=== PATIENT | male | born 1965 | race Caucasian/White ===

== ENCOUNTER 2020-06-06 17:28 | Emergency (ER) | payer BC ==
--- NOTE | 2020-06-06 19:07 | EDM.PDOC ---
ED HPI GENERAL MEDICAL PROBLEM - General Chief Complaint: General Stated Complaint: FISH HOOK Time Seen by Provider: 06/06/20 18:30 Source of Information: Reports: Patient History Limitations: Reports: No Limitations - History of Present Illness INITIAL COMMENTS - FREE TEXT/NARRATIVE: pt presents to the ER with a treble hook and lure in the crease of his nail of index finger right hand. pt states tetanus is up to date about 2016. bleeding controlled. Past Medical History - Past Health History Medical/Surgical History: Denies Medical/Surgical History Social & Family History - Family History Family Medical History: Noncontributory ED ROS GENERAL - Review of Systems Review Of Systems: Comprehensive ROS is negative, except as noted in HPI. ED EXAM, GENERAL - Physical Exam Exam: See Below Exam Limited By: No Limitations General Appearance: Alert, WD/WN, Anxious Respiratory/Chest: No Respiratory Distress, Normal Breath Sounds Cardiovascular: Normal Peripheral Pulses, Regular Rate, Rhythm Extremities: Other (barbed treble hook in crease of fingernail of ring finger right hand.) Neurological: Alert, Oriented, CN II-XII Intact, Normal Cognition, No Motor/Se nsory Deficits Psychiatric: Anxious ED GENERAL MEDICAL PROCEDURES - Additional/Other Procedure(s) Other (Free Text) Procedure(s): fishhook removal pt provided verbal consent for fishook removal from ring finger of right hand site was cleansed with alcohol swab and 2 ml of 1% lido with epi was injected into area surrounding barbed hook. remaining skin was cleansed and cleaned while anesthesia set in. after pt was suitably anesthetized, the barbed treble hook was removed using an 18ga needle to cover mitchell while hook was reversed out of the entrance tract. pt tolerated this exquisitely well and verbalized his gratuity. antibiotic ointment was placed per nursing and pt was informed of s/s of infection to monitor for. Course - Vital Signs Last Recorded V/S: Last Vital Signs Temp 97.8 F 06/06/20 18:22 Pulse 81 06/06/20 18:22 Resp 18 06/06/20 18:22 BP 136/88 06/06/20 18:22 Pulse Ox 100 06/06/20 18:22 Departure - Departure Time of Disposition: 19:10 Disposition: Home, Self-Care 01 Condition: Good Clinical Impression: [place] injury to finger - Discharge Information *PRESCRIPTION DRUG MONITORING PROGRAM REVIEWED*: Not Applicable *COPY OF PRESCRIPTION DRUG MONITORING REPORT IN PATIENT PRETTY: Not Applicable Instructions: Wound Care, Adult Referrals: PCP,None [Primary Care Provider] - Forms: ED Department Discharge Sepsis Event Note (ED) - Evaluation Sepsis Screening Result: No Definite Risk - Focused Exam Vital Signs: Vital Signs Temp Pulse Resp BP Pulse Ox 06/06/20 18:22 97.8 F 81 18 136/88 100 06/06/20 18:06 97.8 F 81 18 136/88 100 - Problem List & Annotations (1) [place] injury to finger SNOMED Code(s): 43666565 Code(s): S69.90XA - UNSP INJURY OF UNSP WRIST, HAND AND FINGER(S), INIT ENCNTR Status: Acute Current Visit: Yes - Problem List Review Problem List Initiated/Reviewed/Updated: Yes - Assessment/Plan Assessment:: assesment: fishook in finger plan: removal of fishook. pt tolerated procedure well.
== END 2020-06-06 19:09 | disposition home or self-care (01) ==
LOC: LB.ED 17:28
DX: S60.454A Superficial foreign body of right ring finger, initial encounter (principal); W45.8XXA Other foreign body or object entering through skin, initial encounter
CPT/HCPCS: 64450; 99282; 99283-25